=== PATIENT | male | born 1970 | race American Indian/Alaskan Native ===

== ENCOUNTER 2019-04-12 19:03 | Inpatient (IN) ==
[2019-04-12] MEDS ORDERED: ACETAMINOPHEN 325 MG TABLET PO PRN (22:21)
[2019-04-12] MEDS ORDERED: GLUCAGON 1 MG VIAL IM PRN (23:02)
[2019-04-12] MEDS ORDERED: DEXTROSE 50% 25 GM/50 ML VIAL IV PRN (23:02)
[2019-04-13] MEDS: SODIUM BICARB INJ 50 MEQ in STERILE WATER INJ 1,000 ML IV SCH ×2 (00:09→10:41)
[2019-04-13] MEDS: INSULIN REGULAR 100 UNIT/ML SUBCUT SCH ×5 (00:27→20:41)
[2019-04-13 01:36] LABS: Amorphous Crystals,Urine Moderate /HPF (Few); Apearance,Urine Slightly Hazy (Clear); Bacteria,Urine Occasional /HPF (Few); Bilirubin,Urine Negative (Negative); Blood, Urine Moderate mg/dL (Negative); Glucose,Urine (UA) 50 mg/dL (Negative); Ketones,Urine Negative (Negative); Mucus,Urine Occasional /LPF (Occasional); Nitrite,Urine Negative (Negative); Protein,Urine >=500 MG/DL; RBC,Urine 6 /HPF (0-4); Squamous Epithelial Cell,Urine Occasional /HPF (0-10); Urine Color Yellow (Yellow); Urine Specific Gravity 1.008 (1.001-1.035); Urine Urobilinogen < 2.0 EU/DL (0.2-1.0); WBC,Urine 3 /HPF (0-6)
[2019-04-13] MEDS: LABETALOL 20 MG/4 ML SYRINGE IV PRN (01:39)
[2019-04-13 02:18] LABS: Protein/Creatinine Ratio,Urine 5.6 RATIO
[2019-04-13 07:34] LABS: Alanine Aminotransferase 12 U/L (16-61); Albumin 2.4 G/DL (3.4-5.0); Alkaline Phosphatase 76 U/L (45-117); Aspartate Amino Transferase 16 U/L (0-37); Bilirubin,Total < 0.39 MG/DL (0.2-1.0); Blood Urea Nitrogen 61 MG/DL (7-18); Estimated Glom Filtration Rate 7 ML/MIN; Glucose 106 MG/DL (74-106); Osmolality,Calculated 295.4 MOS/KG (273-304); Total Protein 6.2 G/DL (6.4-8.3)
[2019-04-13 07:41] LABS: Calcium 5.2 MG/DL (8.5-10.1)
[2019-04-13 07:54] LABS: Basophils % 0.2 % (0.0-0.8); Eosinophils # 0.1 10*3/uL (0.0-0.87); Eosinophils % 1.7 % (0.00-10.9); Hematocrit 23.5 VOL% (42.0-52.0); Hemoglobin 7.9 GM/DL (14.0-18.0); Immature Granulocytes % 1.4 %; Immature Granulocytes Absolute 0.12 #; Lymphocytes # 1.4 10*3/uL (1.4-4.0); Lymphocytes % 16.1 % (21.2-54.2); Mean Corpuscular HGB Conc 33.6 GM/DL (32-36); Mean Corpuscular Volume 91.4 FL (87-102); Mean Platelet Volume 10.1 FL (9.6-12.0); Monocytes % 9.8 % (1.7-12.7); Neutrophils % 70.8 % (38.7-73.9); Platelet Count 261 T/CUMM (130-400); Red Blood Count 2.57 MC/CUMM (3.8-5.5); Red Cell Distribution Width 13.9 % (9.3-17.3); White Blood Count 8.5 T/CUMM (4-12)
[2019-04-13] MEDS: CALCIUM (CARBONATE)/VITAMIN D 500 MG-200 UNIT TABLET PO SCH ×2 (08:19→20:40)
[2019-04-13] MEDS: PANTOPRAZOLE 40 MG TABLET PO SCH (08:19)
[2019-04-13 11:30] LABS: Amorphous Crystals,Urine Occasional /HPF (Few); Apearance,Urine CLOUDY (Clear); Bilirubin,Urine Negative (Negative); Blood, Urine Moderate mg/dL (Negative); Glucose,Urine (UA) 50 mg/dL (Negative); Ketones,Urine Negative (Negative); Nitrite,Urine Negative (Negative); Protein,Urine >=500 MG/DL; RBC,Urine 21 /HPF (0-4); Squamous Epithelial Cell,Urine Occasional /HPF (0-10); Urine Color Yellow (Yellow); Urine Specific Gravity 1.008 (1.001-1.035); Urine Urobilinogen < 2.0 EU/DL (0.2-1.0); WBC,Urine 10 /HPF (0-6)
[2019-04-13] MEDS ORDERED: SODIUM CHLORIDE 0.9% 1,000 ML IV PRN (14:09)
[2019-04-13] MEDS: HEPARIN 5,000 UNIT/1 ML VIAL SUBCUT SCH ×2 (14:50→22:34)
[2019-04-13] MEDS: CALCIUM GLUCONATE 2,000 MG in SODIUM CHLORIDE 0.9% 100 ML IV PRN (19:35)
[2019-04-14 02:55] LABS: Basophils % 0.2 % (0.0-0.8); Eosinophils # 0.1 10*3/uL (0.0-0.87); Eosinophils % 1.3 % (0.00-10.9); Hematocrit 27.6 VOL% (42.0-52.0); Immature Granulocytes % 1.9 %; Immature Granulocytes Absolute 0.16 #; Lymphocytes # 1.4 10*3/uL (1.4-4.0); Lymphocytes % 16.9 % (21.2-54.2); Mean Corpuscular HGB Conc 32.6 GM/DL (32-36); Mean Corpuscular Volume 92.6 FL (87-102); Mean Platelet Volume 9.6 FL (9.6-12.0); Monocytes % 9.6 % (1.7-12.7); Neutrophils % 70.1 % (38.7-73.9); Platelet Count 257 T/CUMM (130-400); Red Blood Count 2.98 MC/CUMM (3.8-5.5); Red Cell Distribution Width 13.8 % (9.3-17.3); White Blood Count 8.4 T/CUMM (4-12)
[2019-04-14 02:56] LABS: Osmolality,Calculated 293.7 MOS/KG (273-304)
[2019-04-14 02:59] LABS: % Iron Saturation 25.8 % (18-50); Ferritin 146.7 ng/ml (26-388)
[2019-04-14 03:00] LABS: Calcium 5.7 MG/DL (8.5-10.1)
[2019-04-14] MEDS ORDERED: CALCIUM GLUCONATE 2,000 MG in SODIUM CHLORIDE 0.9% 100 ML IV ONE (04:00)
[2019-04-14 05:02] LABS: Sedimentation Rate-Westergren 95 MM/HR (0-15)
[2019-04-14] MEDS: HEPARIN 5,000 UNIT/1 ML VIAL SUBCUT SCH ×3 (06:17→21:29)
[2019-04-14] MEDS: SODIUM BICARB INJ 50 MEQ in STERILE WATER INJ 1,000 ML IV SCH ×4 (06:19→22:00)
[2019-04-14] MEDS: INSULIN REGULAR 100 UNIT/ML SUBCUT SCH ×4 (07:24→21:19)
[2019-04-14] MEDS ORDERED: gemfibroziL 600 MG TABLET PO SCH (09:00)
[2019-04-14] MEDS: CALCIUM (CARBONATE)/VITAMIN D 500 MG-200 UNIT TABLET PO SCH ×2 (09:13→21:17)
[2019-04-14] MEDS: PANTOPRAZOLE 40 MG TABLET PO SCH (09:14)
[2019-04-14] MEDS: CALCIUM ACETATE 667 MG CAPSULE PO SCH ×2 (12:21→17:14)
[2019-04-14] MEDS: CALCIUM GLUCONATE 2,000 MG in SODIUM CHLORIDE 0.9% 100 ML IV PRN (13:36)
[2019-04-14] MEDS ORDERED: CALCIUM GLUCONATE 2,000 MG in SODIUM CHLORIDE 0.9% 100 ML IV PRN (21:00)
[2019-04-14] MEDS: LABETALOL 20 MG/4 ML SYRINGE IV PRN (21:52)
[2019-04-15] MEDS: HEPARIN 5,000 UNIT/1 ML VIAL SUBCUT SCH ×3 (05:31→21:58)
[2019-04-15 06:15] LABS: Basophils % 0.3 % (0.0-0.8); Eosinophils # 0.1 10*3/uL (0.0-0.87); Eosinophils % 1.4 % (0.00-10.9); Hematocrit 27.7 VOL% (42.0-52.0); Hemoglobin 9.3 GM/DL (14.0-18.0); Immature Granulocytes % 2.3 %; Immature Granulocytes Absolute 0.18 #; Lymphocytes # 1.5 10*3/uL (1.4-4.0); Lymphocytes % 19.3 % (21.2-54.2); Mean Corpuscular HGB Conc 33.6 GM/DL (32-36); Mean Corpuscular Volume 90.5 FL (87-102); Mean Platelet Volume 9.9 FL (9.6-12.0); Monocytes % 13.1 % (1.7-12.7); Neutrophils % 63.6 % (38.7-73.9); Platelet Count 271 T/CUMM (130-400); Red Blood Count 3.06 MC/CUMM (3.8-5.5); Red Cell Distribution Width 13.5 % (9.3-17.3); White Blood Count 7.8 T/CUMM (4-12)
[2019-04-15 06:33] LABS: Calcium 6.3 MG/DL (8.5-10.1)
[2019-04-15] MEDS: SODIUM BICARB INJ 50 MEQ in STERILE WATER INJ 1,000 ML IV SCH ×2 (08:43→23:20)
[2019-04-15] MEDS: CALCIUM ACETATE 667 MG CAPSULE PO SCH ×3 (08:43→17:33)
[2019-04-15] MEDS: CALCIUM (CARBONATE)/VITAMIN D 500 MG-200 UNIT TABLET PO SCH ×2 (08:44→21:58)
[2019-04-15] MEDS: INSULIN REGULAR 100 UNIT/ML SUBCUT SCH ×4 (08:44→23:19)
[2019-04-15] MEDS: PANTOPRAZOLE 40 MG TABLET PO SCH (08:44)
[2019-04-15 08:57] LABS: Hemoglobin A1 (Alkaline) 97.6 % (96.5-98.5); Hemoglobin A2 (Alkaline) 2.4 % (1.5-3.5)
[2019-04-15] MEDS ORDERED: CALCIUM GLUCONATE 2,000 MG in SODIUM CHLORIDE 0.9% 100 ML IV ONE (12:30)
[2019-04-15 16:27] LABS: Parathyroid Hormone Intact 516.4 PG/ML (18.4-80.1)
[2019-04-15 17:18] LABS: Folate 8.2 NG/ML (5.4-24.0); Vitamin B12 242 PG/ML (211-911)
[2019-04-15 17:59] LABS: Hepatitis B Core IgM Quant < 0.05 Index; Hepatitis B Surface Ag Quant < 0.10 Index; Hepatitis B Surface Ag Result Negative (Negative); Hepatitis C Virus Ab Quant 0.11 Index; Hepatitis C Virus Ab Result Negative (Negative)
[2019-04-16 04:47] LABS: Basophils % 0.5 % (0.0-0.8); Eosinophils # 0.2 10*3/uL (0.0-0.87); Eosinophils % 1.9 % (0.00-10.9); Hematocrit 27.7 VOL% (42.0-52.0); Hemoglobin 9.4 GM/DL (14.0-18.0); Immature Granulocytes % 1.9 %; Immature Granulocytes Absolute 0.16 #; Lymphocytes # 1.7 10*3/uL (1.4-4.0); Lymphocytes % 19.6 % (21.2-54.2); Mean Corpuscular HGB Conc 33.9 GM/DL (32-36); Mean Corpuscular Volume 89.6 FL (87-102); Mean Platelet Volume 9.8 FL (9.6-12.0); Monocytes % 10.3 % (1.7-12.7); Neutrophils % 65.8 % (38.7-73.9); Platelet Count 259 T/CUMM (130-400); Red Blood Count 3.09 MC/CUMM (3.8-5.5); Red Cell Distribution Width 13.2 % (9.3-17.3); White Blood Count 8.6 T/CUMM (4-12)
[2019-04-16 05:14] LABS: Calcium 6.4 MG/DL (8.5-10.1); Osmolality,Calculated 301.4 MOS/KG (273-304)
[2019-04-16 05:16] LABS: Risk Ratio 4.44; VLDL CHOLESTEROL 25.8 MG/DL
[2019-04-16] MEDS: HEPARIN 5,000 UNIT/1 ML VIAL SUBCUT SCH ×3 (05:54→21:30)
[2019-04-16] MEDS ORDERED: CALCIUM GLUCONATE 2,000 MG in SODIUM CHLORIDE 0.9% 100 ML IV ONE ×2 (09:00→20:00)
[2019-04-16] MEDS ORDERED: BUPIVACAINE 0.25% /EPI 10 ML VIAL ONE (12:12)
[2019-04-16] MEDS ORDERED: HEPARIN 5,000 UNIT/1 ML VIAL ONE (12:12)
[2019-04-16] MEDS ORDERED: LIDOCAINE 1%/EPI INJ 20 ML VIAL ONE (12:12)
[2019-04-16] MEDS: INSULIN REGULAR 100 UNIT/ML SUBCUT SCH ×4 (12:35→23:59)
[2019-04-16] MEDS: CALCIUM ACETATE 667 MG CAPSULE PO SCH ×2 (12:35→18:19)
[2019-04-16] MEDS: PANTOPRAZOLE 40 MG TABLET PO SCH (12:36)
[2019-04-16] MEDS ORDERED: TISSUE ADHESIVE 1 EACH APPLICATOR TOP ONE (12:59)
[2019-04-16] MEDS ORDERED: SODIUM CHLORIDE 0.9% 250 ML IV SCH (13:00)
[2019-04-16] MEDS ORDERED: LIDOCAINE 2% 5 ML VIAL ONE (13:48)
[2019-04-16] MEDS ORDERED: propofoL 200 MG/20 ML VIAL IV ONE (13:48)
[2019-04-16] MEDS ORDERED: MIDAZOLAM 2 MG/2 ML VIAL ONE (13:48)
[2019-04-16] MEDS: LABETALOL 20 MG/4 ML SYRINGE IV PRN (16:06)
[2019-04-16] MEDS ORDERED: HEPARIN 10,000 UNIT/10 ML VIAL IV SCH (17:30)
[2019-04-16] MEDS: CALCIUM (CARBONATE)/VITAMIN D 500 MG-200 UNIT TABLET PO SCH ×2 (17:37→21:27)
[2019-04-16] MEDS: SODIUM BICARB INJ 50 MEQ in STERILE WATER INJ 1,000 ML IV SCH ×2 (18:18→18:19)
[2019-04-16] MEDS: OMEGA 3 ACID ETHYL ESTERS 1 GM CAPSULE PO SCH (21:27)
[2019-04-17 05:22] LABS: Basophils % 0.3 % (0.0-0.8); Eosinophils # 0.1 10*3/uL (0.0-0.87); Eosinophils % 1.5 % (0.00-10.9); Hematocrit 30.9 VOL% (42.0-52.0); Hemoglobin 10.2 GM/DL (14.0-18.0); Immature Granulocytes % 1.6 %; Immature Granulocytes Absolute 0.15 #; Lymphocytes # 1.2 10*3/uL (1.4-4.0); Lymphocytes % 12.6 % (21.2-54.2); Mean Corpuscular Volume 90.1 FL (87-102); Mean Platelet Volume 9.8 FL (9.6-12.0); Monocytes % 8.6 % (1.7-12.7); Neutrophils % 75.4 % (38.7-73.9); Platelet Count 337 T/CUMM (130-400); Red Blood Count 3.43 MC/CUMM (3.8-5.5); Red Cell Distribution Width 13.2 % (9.3-17.3); White Blood Count 9.6 T/CUMM (4-12)
[2019-04-17] MEDS: HEPARIN 5,000 UNIT/1 ML VIAL SUBCUT SCH ×3 (05:32→21:29)
[2019-04-17 05:41] LABS: Calcium 7.3 MG/DL (8.5-10.1); Osmolality,Calculated 292.8 MOS/KG (273-304)
[2019-04-17] MEDS ORDERED: fentaNYL 100 MCG/2 ML VIAL ONE (06:55)
[2019-04-17] MEDS: INSULIN REGULAR 100 UNIT/ML SUBCUT SCH ×4 (08:45→21:29)
[2019-04-17] MEDS: OMEGA 3 ACID ETHYL ESTERS 1 GM CAPSULE PO SCH ×2 (08:46→21:28)
[2019-04-17] MEDS: CALCIUM (CARBONATE)/VITAMIN D 500 MG-200 UNIT TABLET PO SCH ×2 (08:46→21:29)
[2019-04-17] MEDS: CALCIUM ACETATE 667 MG CAPSULE PO SCH ×3 (08:46→16:54)
[2019-04-17] MEDS: PANTOPRAZOLE 40 MG TABLET PO SCH (08:46)
[2019-04-17] MEDS: SODIUM BICARB INJ 50 MEQ in STERILE WATER INJ 1,000 ML IV SCH (11:13)
[2019-04-18] MEDS: HEPARIN 5,000 UNIT/1 ML VIAL SUBCUT SCH (06:04)
[2019-04-18] MEDS: INSULIN REGULAR 100 UNIT/ML SUBCUT SCH (08:09)
[2019-04-18 08:20] VITALS: BP 147/78
[2019-04-18] MEDS: OMEGA 3 ACID ETHYL ESTERS 1 GM CAPSULE PO SCH (08:26)
[2019-04-18] MEDS: CALCIUM (CARBONATE)/VITAMIN D 500 MG-200 UNIT TABLET PO SCH (08:27)
[2019-04-18] MEDS: CALCIUM ACETATE 667 MG CAPSULE PO SCH (08:27)
[2019-04-18] MEDS: PANTOPRAZOLE 40 MG TABLET PO SCH (08:27)
== END 2019-04-18 11:25 | disposition home or self-care (01) | DRG 673 ==
LOC: N.2E → SUATTDRO 20:36
PROVIDERS: ADMIT Nurse Practitioner Family; ATTEND Internal Medicine Cardiovascular Disease

== ENCOUNTER 2020-05-31 00:20 | Inpatient (IN) ==
[2020-05-31] MEDS ORDERED: INFLUENZA VIRUS VACCINE 0.5 ML SYRINGE IM ONE (02:58)
[2020-05-31] MEDS ORDERED: PNEUMOCOCCAL VACCINE (13 VALENT) 0.5 ML SYRINGE IM ONE (02:58)
[2020-05-31] MEDS ORDERED: hydrALAZINE 20 MG/1 ML VIAL IV PRN (02:59)
[2020-05-31] MEDS ORDERED: guaiFENesin/DM ER 600-30 MG TABLET PO PRN (02:59)
[2020-05-31] MEDS ORDERED: diphenhydrAMINE CAP 25 MG CAPSULE PO PRN (02:59)
[2020-05-31] MEDS ORDERED: MORPHINE 4 MG/1 ML VIAL IV PRN (02:59)
[2020-05-31] MEDS ORDERED: NICOTINE 21 MG/24 HR PATCH TRANSDERM PRN (02:59)
[2020-05-31] MEDS ORDERED: ONDANSETRON 4 MG/2 ML VIAL IV PRN (02:59)
[2020-05-31 03:16] LABS: ABG Base Excess 5.4 MMOL/L (-2.5-2.5); ABG HCO3 29.3 MMOL/L (20-26); ABG Oxygen Saturation 96.2 % (95-100); ABG PH 7.458 (7.35-7.45); ABG TCO2 26.9 MMOL/L (23-27)
[2020-05-31] MEDS ORDERED: GLUCAGON 1 MG VIAL IM PRN (03:59)
[2020-05-31] MEDS ORDERED: DEXTROSE 50% 25 GM/50 ML VIAL IV PRN (03:59)
[2020-05-31] MEDS ORDERED: PIPERACILLIN/TAZOBACTAM 3,375 MG in SODIUM CHLORIDE 0.9% 100 ML IV SCH (04:00)
[2020-05-31 04:11] LABS: Basophils % 0.1 % (0.0-0.8); Hemoglobin 9.4 GM/DL (14.0-18.0); Lymphocytes # 0.5 10*3/uL (1.4-4.0); Lymphocytes % 4.4 % (21.2-54.2); Mean Corpuscular HGB Conc 33.6 GM/DL (32-36); Mean Corpuscular Volume 95.9 FL (87-102); Mean Platelet Volume 8.8 FL (9.6-12.0); Monocytes % 3.2 % (1.7-12.7); Neutrophils % 91.3 % (38.7-73.9); Platelet Count 258 T/CUMM (130-400); Red Blood Count 2.92 MC/CUMM (3.8-5.5); Red Cell Distribution Width 12.9 % (9.3-17.3); White Blood Count 10.3 T/CUMM (4-12)
[2020-05-31 04:31] LABS: Hypochromasia 1+; Lymphocytes 5 % (20-55); Microcytosis 1+; Platelet Estimate Adequate; Segmented Neutrophils 92 % (50-85); Total Cells Counted 100
[2020-05-31 04:43] LABS: Albumin 2.4 G/DL (3.4-5.0); Bilirubin,Total 0.6 MG/DL (0.2-1.0); Osmolality,Calculated 273.1 MOS/KG (273-304); Potassium 3.9 MMOL/L (3.5-5.1); Total Protein 7.7 G/DL (6.4-8.3)
[2020-05-31 04:47] LABS: Ferritin 3469.5 ng/ml (26-388)
[2020-05-31] MEDS ORDERED: HEPARIN 5,000 UNIT/1 ML VIAL SUBCUT SCH (05:00)
[2020-05-31] MEDS: cefTRIAXone 1,000 MG in SYRINGE 1 EACH IV SCH (05:46)
[2020-05-31] MEDS ORDERED: INSULIN LISPRO 100 UNIT/ML SUBCUT SCH ×2 (07:30→10:00)
[2020-05-31] MEDS: DEXAMETHASONE 4 MG/1 ML VIAL IV SCH (08:02)
[2020-05-31] MEDS: ZINC GLUCONATE 50 MG TABLET PO SCH (08:03)
[2020-05-31] MEDS: CHOLECALCIFEROL 1,000 UNIT TABLET PO SCH (08:03)
[2020-05-31] MEDS: CETIRIZINE 10 MG TABLET PO SCH (08:03)
[2020-05-31] MEDS: ASPIRIN EC 81 MG TABLET PO SCH (08:03)
[2020-05-31] MEDS: PANTOPRAZOLE 40 MG TABLET PO SCH (08:04)
[2020-05-31] MEDS: OMEGA 3 ACID ETHYL ESTERS 1 GM CAPSULE PO SCH (08:04)
[2020-05-31] MEDS: gemfibroziL 600 MG TABLET PO SCH ×2 (08:04→21:04)
[2020-05-31] MEDS: SEVELAMER CARBONATE 800 MG TABLET PO SCH ×3 (08:04→17:43)
[2020-05-31] MEDS: ASCORBIC ACID 500 MG TABLET PO SCH ×2 (08:05→21:04)
[2020-05-31] MEDS: FAMOTIDINE 20 MG TABLET PO SCH ×2 (08:06→21:04)
[2020-05-31] MEDS: CALCIUM (CARBONATE)/VITAMIN D 600 MG-400 UNIT TABLET PO SCH ×2 (08:07→21:04)
[2020-05-31] MEDS ORDERED: GLIMEPIRIDE 4 MG TABLET PO SCH (09:00)
[2020-05-31] MEDS ORDERED: sitaGLIPtin 25 MG TABLET PO SCH (09:00)
[2020-05-31] MEDS: ENOXAPARIN 100 MG/ML SYRINGE SUBCUT SCH (12:20)
[2020-05-31] MEDS: INSULIN LISPRO 100 UNIT/ML SUBCUT SCH ×4 (12:20→21:04)
[2020-05-31] MEDS: INSULIN GLARGINE 100 UNIT/ML SUBCUT SCH (21:04)
[2020-06-01] MEDS: INSULIN LISPRO 100 UNIT/ML SUBCUT SCH ×7 (03:06→23:36)
[2020-06-01 03:54] LABS: Hematocrit 26.2 VOL% (42.0-52.0); Hemoglobin 8.8 GM/DL (14.0-18.0); Immature Granulocytes % 0.8 %; Immature Granulocytes Absolute 0.09 #; Lymphocytes # 0.8 10*3/uL (1.4-4.0); Lymphocytes % 6.6 % (21.2-54.2); Mean Corpuscular HGB Conc 33.6 GM/DL (32-36); Mean Corpuscular Volume 98.5 FL (87-102); Mean Platelet Volume 9.3 FL (9.6-12.0); Neutrophils % 89.6 % (38.7-73.9); Platelet Count 299 T/CUMM (130-400); Red Blood Count 2.66 MC/CUMM (3.8-5.5); Red Cell Distribution Width 13.1 % (9.3-17.3); White Blood Count 11.5 T/CUMM (4-12)
[2020-06-01 04:08] LABS: ABG HCO3 25.1 MMOL/L (20-26); ABG Oxygen Saturation 95.4 % (95-100); ABG PCO2 37.3 MM HG (35-48); ABG PH 7.445 (7.35-7.45); ABG TCO2 26.2 MMOL/L (23-27)
[2020-06-01 04:26] LABS: Albumin 2.2 G/DL (3.4-5.0); Bilirubin,Total 1.6 MG/DL (0.2-1.0); Osmolality,Calculated 292.5 MOS/KG (273-304); Potassium 4.3 MMOL/L (3.5-5.1); Total Protein 7.4 G/DL (6.4-8.3)
[2020-06-01 04:39] LABS: Troponin I 2.42 NG/ML (0.00-0.045)
[2020-06-01] MEDS: cefTRIAXone 1,000 MG in SYRINGE 1 EACH IV SCH (05:37)
[2020-06-01] MEDS: SEVELAMER CARBONATE 800 MG TABLET PO SCH ×3 (08:39→16:39)
[2020-06-01] MEDS: PANTOPRAZOLE 40 MG TABLET PO SCH (08:39)
[2020-06-01] MEDS: OMEGA 3 ACID ETHYL ESTERS 1 GM CAPSULE PO SCH (08:39)
[2020-06-01] MEDS: CALCIUM (CARBONATE)/VITAMIN D 600 MG-400 UNIT TABLET PO SCH ×2 (08:39→20:04)
[2020-06-01] MEDS: AZITHROMYCIN 250 MG TABLET PO SCH (08:39)
[2020-06-01] MEDS: CHOLECALCIFEROL 1,000 UNIT TABLET PO SCH (08:40)
[2020-06-01] MEDS: gemfibroziL 600 MG TABLET PO SCH ×2 (08:40→20:04)
[2020-06-01] MEDS: FAMOTIDINE 20 MG TABLET PO SCH (08:40)
[2020-06-01] MEDS: ASPIRIN EC 81 MG TABLET PO SCH (08:41)
[2020-06-01] MEDS: ASCORBIC ACID 500 MG TABLET PO SCH ×2 (08:41→20:04)
[2020-06-01] MEDS: CETIRIZINE 10 MG TABLET PO SCH (08:41)
[2020-06-01] MEDS: ZINC GLUCONATE 50 MG TABLET PO SCH (08:41)
[2020-06-01] MEDS: DEXAMETHASONE 4 MG/1 ML VIAL IV SCH (08:42)
[2020-06-01] MEDS: ENOXAPARIN 100 MG/ML SYRINGE SUBCUT SCH (08:43)
[2020-06-01] MEDS: HEPARIN 5,000 UNIT/1 ML VIAL SUBCUT SCH ×2 (13:04→19:58)
[2020-06-01] MEDS ORDERED: SODIUM CHLORIDE 0.9% 1,000 ML IV PRN (13:20)
[2020-06-01] MEDS: MELATONIN 3 MG TABLET PO PRN (20:04)
[2020-06-01] MEDS: INSULIN GLARGINE 100 UNIT/ML SUBCUT SCH (20:05)
[2020-06-02 04:31] LABS: Eosinophils % 0.1 % (0.00-10.9); Hematocrit 29.5 VOL% (42.0-52.0); Hemoglobin 9.3 GM/DL (14.0-18.0); Immature Granulocytes % 1.6 %; Immature Granulocytes Absolute 0.16 #; Lymphocytes # 0.9 10*3/uL (1.4-4.0); Lymphocytes % 8.8 % (21.2-54.2); Mean Corpuscular HGB Conc 31.5 GM/DL (32-36); Mean Corpuscular Volume 101.4 FL (87-102); Mean Platelet Volume 10.7 FL (9.6-12.0); Monocytes % 2.2 % (1.7-12.7); NRBC # 0.05 10*3/uL; Neutrophils % 87.3 % (38.7-73.9); Platelet Count 254 T/CUMM (130-400); Red Blood Count 2.91 MC/CUMM (3.8-5.5); Red Cell Distribution Width 12.8 % (9.3-17.3)
[2020-06-02 04:49] LABS: Calcium 8.4 MG/DL (8.5-10.1); Osmolality,Calculated 274.7 MOS/KG (273-304); Potassium 4.5 MMOL/L (3.5-5.1)
[2020-06-02 04:49] LABS: Risk Ratio 3.65
[2020-06-02] MEDS: INSULIN LISPRO 100 UNIT/ML SUBCUT SCH ×6 (04:53→23:08)
[2020-06-02 05:06] LABS: Hypochromasia 2+; Microcytosis 1+; Platelet Estimate Adequate
[2020-06-02] MEDS: cefTRIAXone 1,000 MG in SYRINGE 1 EACH IV SCH (05:57)
[2020-06-02] MEDS: HEPARIN 5,000 UNIT/1 ML VIAL SUBCUT SCH ×3 (05:57→23:08)
[2020-06-02] MEDS: SEVELAMER CARBONATE 800 MG TABLET PO SCH ×3 (08:33→17:23)
[2020-06-02] MEDS: gemfibroziL 600 MG TABLET PO SCH ×2 (08:33→23:08)
[2020-06-02] MEDS: OMEGA 3 ACID ETHYL ESTERS 1 GM CAPSULE PO SCH (08:33)
[2020-06-02] MEDS: ZINC GLUCONATE 50 MG TABLET PO SCH (08:33)
[2020-06-02] MEDS: ASPIRIN EC 81 MG TABLET PO SCH (08:33)
[2020-06-02] MEDS: CETIRIZINE 10 MG TABLET PO SCH (08:39)
[2020-06-02] MEDS: CALCIUM (CARBONATE)/VITAMIN D 600 MG-400 UNIT TABLET PO SCH ×2 (08:39→23:08)
[2020-06-02] MEDS: AZITHROMYCIN 250 MG TABLET PO SCH (08:39)
[2020-06-02] MEDS: ASCORBIC ACID 500 MG TABLET PO SCH ×2 (08:39→23:09)
[2020-06-02] MEDS: FAMOTIDINE 20 MG TABLET PO SCH (08:39)
[2020-06-02] MEDS: CHOLECALCIFEROL 1,000 UNIT TABLET PO SCH (08:39)
[2020-06-02] MEDS: DEXAMETHASONE 4 MG/1 ML VIAL IV SCH (08:40)
[2020-06-02] MEDS ORDERED: INSULIN GLARGINE 100 UNIT/ML SUBCUT SCH (21:00)
[2020-06-03] MEDS: INSULIN LISPRO 100 UNIT/ML SUBCUT SCH ×6 (02:28→20:56)
[2020-06-03] MEDS: HEPARIN 5,000 UNIT/1 ML VIAL SUBCUT SCH ×3 (03:34→20:56)
[2020-06-03] MEDS: cefTRIAXone 1,000 MG in SYRINGE 1 EACH IV SCH (05:15)
[2020-06-03] MEDS: FAMOTIDINE 20 MG TABLET PO SCH (08:27)
[2020-06-03] MEDS: gemfibroziL 600 MG TABLET PO SCH ×2 (08:27→20:55)
[2020-06-03] MEDS: CHOLECALCIFEROL 1,000 UNIT TABLET PO SCH (08:27)
[2020-06-03] MEDS: CETIRIZINE 10 MG TABLET PO SCH (08:27)
[2020-06-03] MEDS: ASCORBIC ACID 500 MG TABLET PO SCH ×2 (08:27→20:55)
[2020-06-03] MEDS: AZITHROMYCIN 250 MG TABLET PO SCH (08:27)
[2020-06-03] MEDS: DEXAMETHASONE 4 MG/1 ML VIAL IV SCH (08:28)
[2020-06-03] MEDS: CALCIUM (CARBONATE)/VITAMIN D 600 MG-400 UNIT TABLET PO SCH ×2 (08:28→20:55)
[2020-06-03] MEDS: ZINC GLUCONATE 50 MG TABLET PO SCH (08:28)
[2020-06-03] MEDS: ASPIRIN EC 81 MG TABLET PO SCH (08:28)
[2020-06-03] MEDS: OMEGA 3 ACID ETHYL ESTERS 1 GM CAPSULE PO SCH (08:28)
[2020-06-03] MEDS: SEVELAMER CARBONATE 800 MG TABLET PO SCH ×3 (08:28→16:09)
[2020-06-03 11:55] LABS: Calcium 8.4 MG/DL (8.5-10.1); Potassium 3.6 MMOL/L (3.5-5.1)
[2020-06-03] MEDS: MELATONIN 3 MG TABLET PO PRN (20:56)
[2020-06-04] MEDS: INSULIN LISPRO 100 UNIT/ML SUBCUT SCH ×7 (00:17→20:44)
[2020-06-04] MEDS: HEPARIN 5,000 UNIT/1 ML VIAL SUBCUT SCH ×3 (04:34→20:44)
[2020-06-04] MEDS: cefTRIAXone 1,000 MG in SYRINGE 1 EACH IV SCH (05:15)
[2020-06-04] MEDS: ZINC GLUCONATE 50 MG TABLET PO SCH (08:26)
[2020-06-04] MEDS: OMEGA 3 ACID ETHYL ESTERS 1 GM CAPSULE PO SCH (08:26)
[2020-06-04] MEDS: CHOLECALCIFEROL 1,000 UNIT TABLET PO SCH (08:27)
[2020-06-04] MEDS: ASCORBIC ACID 500 MG TABLET PO SCH ×2 (08:27→20:44)
[2020-06-04] MEDS: SEVELAMER CARBONATE 800 MG TABLET PO SCH ×4 (08:27→16:07)
[2020-06-04] MEDS: CALCIUM (CARBONATE)/VITAMIN D 600 MG-400 UNIT TABLET PO SCH ×2 (08:27→20:44)
[2020-06-04] MEDS: ASPIRIN EC 81 MG TABLET PO SCH (08:27)
[2020-06-04] MEDS: CETIRIZINE 10 MG TABLET PO SCH (08:27)
[2020-06-04] MEDS: AZITHROMYCIN 250 MG TABLET PO SCH (08:28)
[2020-06-04] MEDS: FAMOTIDINE 20 MG TABLET PO SCH (08:28)
[2020-06-04] MEDS: DEXAMETHASONE 4 MG/1 ML VIAL IV SCH (08:28)
[2020-06-04] MEDS: gemfibroziL 600 MG TABLET PO SCH ×2 (08:28→20:44)
[2020-06-04 10:52] LABS: Basophils % 0.3 % (0.0-0.8); Eosinophils # 0.1 10*3/uL (0.0-0.87); Eosinophils % 1.1 % (0.00-10.9); Hematocrit 26.9 VOL% (42.0-52.0); Hemoglobin 9.2 GM/DL (14.0-18.0); Immature Granulocytes % 7.6 %; Immature Granulocytes Absolute 0.87 #; Lymphocytes # 0.7 10*3/uL (1.4-4.0); Lymphocytes % 6.2 % (21.2-54.2); Mean Corpuscular HGB Conc 34.2 GM/DL (32-36); Mean Corpuscular Volume 97.1 FL (87-102); Mean Platelet Volume 9.1 FL (9.6-12.0); Monocytes % 3.9 % (1.7-12.7); NRBC # 0.02 10*3/uL; Neutrophils % 80.9 % (38.7-73.9); Platelet Count 411 T/CUMM (130-400); Red Blood Count 2.77 MC/CUMM (3.8-5.5); Red Cell Distribution Width 12.9 % (9.3-17.3); White Blood Count 11.5 T/CUMM (4-12)
[2020-06-04 11:08] LABS: Calcium 9.2 MG/DL (8.5-10.1); Osmolality,Calculated 283.9 MOS/KG (273-304)
[2020-06-04 11:20] LABS: Band Neutrophils 1 % (0-10); Eosinophils 1 % (0-10); Hypochromasia Slight; Lymphocytes 5 % (20-55); Microcytosis 1+; Platelet Estimate Increased; Segmented Neutrophils 85 % (50-85); Total Cells Counted 100
[2020-06-04] MEDS: MELATONIN 3 MG TABLET PO PRN (20:44)
[2020-06-05] MEDS: INSULIN LISPRO 100 UNIT/ML SUBCUT SCH ×5 (00:17→16:25)
[2020-06-05] MEDS: HEPARIN 5,000 UNIT/1 ML VIAL SUBCUT SCH ×2 (04:22→11:52)
[2020-06-05] MEDS: cefTRIAXone 1,000 MG in SYRINGE 1 EACH IV SCH (04:23)
[2020-06-05 05:51] LABS: Basophils % 0.2 % (0.0-0.8); Eosinophils # 0.2 10*3/uL (0.0-0.87); Hematocrit 26.4 VOL% (42.0-52.0); Hemoglobin 8.9 GM/DL (14.0-18.0); Immature Granulocytes Absolute 0.98 #; Lymphocytes # 1.4 10*3/uL (1.4-4.0); Lymphocytes % 15.9 % (21.2-54.2); Mean Corpuscular HGB Conc 33.7 GM/DL (32-36); Mean Platelet Volume 9.5 FL (9.6-12.0); Monocytes % 5.5 % (1.7-12.7); NRBC # 0.02 10*3/uL; Neutrophils % 65.4 % (38.7-73.9); Platelet Count 438 T/CUMM (130-400); Red Blood Count 2.75 MC/CUMM (3.8-5.5); Red Cell Distribution Width 12.8 % (9.3-17.3); White Blood Count 8.9 T/CUMM (4-12)
[2020-06-05 06:26] LABS: Calcium 9.2 MG/DL (8.5-10.1); Osmolality,Calculated 294.5 MOS/KG (273-304)
[2020-06-05] MEDS: ASPIRIN EC 81 MG TABLET PO SCH (08:03)
[2020-06-05] MEDS: CHOLECALCIFEROL 1,000 UNIT TABLET PO SCH (08:03)
[2020-06-05] MEDS: SEVELAMER CARBONATE 800 MG TABLET PO SCH ×3 (08:04→16:24)
[2020-06-05] MEDS: ASCORBIC ACID 500 MG TABLET PO SCH (08:04)
[2020-06-05] MEDS: FAMOTIDINE 20 MG TABLET PO SCH (08:04)
[2020-06-05] MEDS: gemfibroziL 600 MG TABLET PO SCH (08:04)
[2020-06-05] MEDS: OMEGA 3 ACID ETHYL ESTERS 1 GM CAPSULE PO SCH (08:04)
[2020-06-05] MEDS: CALCIUM (CARBONATE)/VITAMIN D 600 MG-400 UNIT TABLET PO SCH (08:04)
[2020-06-05] MEDS: ZINC GLUCONATE 50 MG TABLET PO SCH (08:05)
[2020-06-05] MEDS: DEXAMETHASONE 4 MG/1 ML VIAL IV SCH (08:05)
[2020-06-05] MEDS: CETIRIZINE 10 MG TABLET PO SCH (08:05)
[2020-06-05 08:15] LABS: Band Neutrophils 3 % (0-10); Eosinophils 5 % (0-10); Hypochromasia 1+; Lymphocytes 13 % (20-55); Myelocytes 1 %; Promyelocytes 1 %; Segmented Neutrophils 74 % (50-85); Total Cells Counted 100
[2020-06-05 08:16] LABS: Anisocytosis 1+; Microcytosis 1+; Platelet Estimate Increased; Polychromasia Slight
[2020-06-05 15:52] VITALS: BP 143/70
== END 2020-06-05 18:36 | disposition home health service (06) | DRG 177 ==
LOC: N.CC 02:41 → SUATTDRO 02:41 → N.2E 06-02 19:57
PROVIDERS: ADMIT Internal Medicine; ATTEND Internal Medicine